=== PATIENT | female | born 1985 | race Caucasian/White ===

== ENCOUNTER → 2020-01-29 | Outpatient (CLI) | payer OTHER ==
[2020-01-29 10:52] LABS: ABSOLUTE BASOPHILS # (AUTO) 0.1 10^3/uL (0.0-0.2); ABSOLUTE EOSINOPHILS # (AUTO) 0.1 10^3/uL (0.0-0.6); ABSOLUTE LYMPHOCYTES (AUTO) 1.7 10^3/uL (0.5-4.7); ABSOLUTE MONOCYTES (AUTO) 0.8 10^3/uL (0.1-1.4); ABSOLUTE NEUT (AUTO) 5.6 10^3/uL (1.7-8.2); BASOPHILS % (AUTO) 0.8 % (0-2); EOSINOPHILS % (AUTO) 0.8 % (0-6); HEMATOCRIT 32.7 % (36.0-47.0); HEMOGLOBIN 11.1 g/dL (12.0-15.5); LYMPHOCYTES % (AUTO) 21.1 % (13-45); MEAN CORPUSCULAR HEMOGLOBIN 26.7 pg (27.0-33.4); MEAN CORPUSCULAR VOLUME 79 fl (80-97); MONOCYTES % (AUTO) 9.8 % (3-13); PLATELET COUNT 232 10^3/uL (150-450); RED BLOOD COUNT 4.16 10^6/uL (3.72-5.28); RED CELL DISTRIBUTION WIDTH 16.3 % (11.5-14.0); SEGMENTED NEUTROPHILS % (AUTO) 67.5 % (42-78); TOTAL CELLS COUNTED % (AUTO) 100 %; WHITE BLOOD COUNT 8.2 10^3/uL (4.0-10.5)
[2020-01-29 11:00] LABS: APPEARANCE,URINE CLEAR; BILIRUBIN,URINE NEGATIVE (NEGATIVE); COLOR,URINE STRAW; GLUCOSE, URINE NEGATIVE (NEGATIVE); KETONES,URINE NEGATIVE (NEGATIVE); LEUKOCYTE ESTERASE,URINE NEGATIVE (NEGATIVE); NITRITE,URINE NEGATIVE (NEGATIVE); PROTEIN,URINE NEGATIVE (NEGATIVE); URINE SPECIFIC GRAVITY 1.004; UROBILINOGEN,URINE NEGATIVE mg/dL (<2.0)
[2020-01-29 11:29] LABS: URINE AMPHETAMINES SCREEN NEGATIVE; URINE BARBITURATES SCREEN NEGATIVE; URINE BENZODIAZEPINES SCREEN NEGATIVE; URINE COCAINE SCREEN NEGATIVE; URINE MARIJUANA (THC) SCREEN NEGATIVE; URINE METHADONE SCREEN NEGATIVE; URINE PHENCYCLIDINE SCREEN NEGATIVE
[2020-01-29 13:01] VITALS: BP 133/64
== END ==
LOC: OD 10:25 → EDSTATUS 02-04 07:45
PROVIDERS: ATTEND Student in an Organized Health Care Education/Training Program
DX: Z01.812 Encounter for preprocedural laboratory examination (principal); O34.219 Maternal care for unspecified type scar from previous cesarean delivery
CPT/HCPCS: 36415; 80307; 81001; 85025

== ENCOUNTER 2020-02-02 05:06 | Inpatient (IN) | payer OTHER ==
[2020-02-02 05:44] LABS: ABSOLUTE BASOPHILS # (AUTO) 0.1 10^3/uL (0.0-0.2); ABSOLUTE EOSINOPHILS # (AUTO) 0.1 10^3/uL (0.0-0.6); ABSOLUTE LYMPHOCYTES (AUTO) 2.1 10^3/uL (0.5-4.7); ABSOLUTE MONOCYTES (AUTO) 1.1 10^3/uL (0.1-1.4); ABSOLUTE NEUT (AUTO) 7.4 10^3/uL (1.7-8.2); BASOPHILS % (AUTO) 1.2 % (0-2); EOSINOPHILS % (AUTO) 1.1 % (0-6); HEMATOCRIT 32.3 % (36.0-47.0); HEMOGLOBIN 11.2 g/dL (12.0-15.5); LYMPHOCYTES % (AUTO) 19.1 % (13-45); MEAN CORPUSCULAR HEMOGLOBIN 27.2 pg (27.0-33.4); MEAN CORPUSCULAR HGB CONC 34.8 g/dL (32.0-36.0); MEAN CORPUSCULAR VOLUME 78 fl (80-97); MONOCYTES % (AUTO) 10.5 % (3-13); PLATELET COUNT 266 10^3/uL (150-450); RED BLOOD COUNT 4.13 10^6/uL (3.72-5.28); RED CELL DISTRIBUTION WIDTH 16.3 % (11.5-14.0); SEGMENTED NEUTROPHILS % (AUTO) 68.1 % (42-78); TOTAL CELLS COUNTED % (AUTO) 100 %; WHITE BLOOD COUNT 10.8 10^3/uL (4.0-10.5)
[2020-02-02 05:46] LABS: APPEARANCE,URINE CLOUDY; BILIRUBIN,URINE NEGATIVE (NEGATIVE); COLOR,URINE YELLOW; GLUCOSE, URINE NEGATIVE (NEGATIVE); KETONES,URINE NEGATIVE (NEGATIVE); LEUKOCYTE ESTERASE,URINE NEGATIVE (NEGATIVE); NITRITE,URINE NEGATIVE (NEGATIVE); PROTEIN,URINE 30 mg/dL (NEGATIVE); URINE SPECIFIC GRAVITY 1.011; UROBILINOGEN,URINE NEGATIVE mg/dL (<2.0)
[2020-02-02] MEDS ORDERED: GLUCAGON,HUMAN RECOMB 1 MG INJ SUBCUT PRN (05:50)
[2020-02-02] MEDS ORDERED: DEXTROSE 40% GEL 15 GM TUBE PO PRN ×2 (05:50)
[2020-02-02] MEDS ORDERED: RINGERS SOLUTION,LACTATED 1,000 ML IV ONE (05:50)
[2020-02-02] MEDS ORDERED: RINGERS SOLUTION,LACTATED 1,000 ML IV PRN (05:50)
[2020-02-02] MEDS ORDERED: DEXTROSE 50%-WATER 25 GM/50 ML DISP.SYRIN IV PRN ×2 (05:50)
[2020-02-02 06:03] LABS: URINE AMPHETAMINES SCREEN NEGATIVE; URINE BARBITURATES SCREEN NEGATIVE; URINE BENZODIAZEPINES SCREEN NEGATIVE; URINE COCAINE SCREEN NEGATIVE; URINE MARIJUANA (THC) SCREEN NEGATIVE; URINE METHADONE SCREEN NEGATIVE; URINE PHENCYCLIDINE SCREEN NEGATIVE
[2020-02-02] MEDS ORDERED: CEFAZOLIN INJ 1 GM VIAL ONE (06:25)
[2020-02-02] MEDS ORDERED: CITRIC ACID/SODIUM CITRATE ORAL SOLN 15 ML UDCUP ONE (06:25)
[2020-02-02] MEDS ORDERED: CEFAZOLIN SODIUM 3 GM in DEXTROSE 5%-WATER 50 ML IV PRN (06:30)
[2020-02-02] MEDS ORDERED: FENTANYL CITRATE INJ/PF 100 MCG/2 ML AMPUL ONE (06:33)
[2020-02-02] MEDS ORDERED: EPHEDRINE SULFATE INJ 50 MG/1 ML AMPULE ONE (06:33)
[2020-02-02] MEDS ORDERED: KETOROLAC TROMETHAMINE INJ/PF 30 MG/1 ML SDV ONE (06:33)
[2020-02-02] MEDS ORDERED: OXYTOCIN 10 UNIT/ML VIAL ONE (06:33)
[2020-02-02] MEDS ORDERED: PHENYLEPHRINE HCL INJ/PF 10 MG/1 ML SDV ONE (06:33)
[2020-02-02] MEDS ORDERED: ACETAMINOPHEN 1,000 MG/100 ML RTUPB IV ONE (06:34)
[2020-02-02] MEDS ORDERED: ONDANSETRON HCL INJ/PF 4 MG/2 ML SDV ONE (06:34)
[2020-02-02] MEDS ORDERED: METHYLERGONOVINE MALEATE INJ/PF 0.2 MG/1 ML AMPULE ONE (06:34)
[2020-02-02] MEDS ORDERED: MIDAZOLAM 2 MG/2 ML INJ ONE (06:34)
[2020-02-02] MEDS ORDERED: ACETAMINOPHEN 1,000 MG/100 ML RTUPB IV PRN (08:47)
[2020-02-02] MEDS ORDERED: OXYCODONE-ACETAMINOPHEN 5-325 MG TABLET PO PRN (08:47)
[2020-02-02] MEDS ORDERED: MEASLES,MUMPS&RUBELLA VACC/PF 0.5 ML VIAL SUBCUT PRN (08:47)
[2020-02-02] MEDS ORDERED: OXYTOCIN/NORMAL SALINE 20 UNIT/1,000 ML RTUINJ IV PRN (08:47)
[2020-02-02] MEDS ORDERED: ACETAMINOPHEN 325 MG TABLET PO PRN (08:47)
[2020-02-02] MEDS ORDERED: DIPH/PERTUSS(ACELL)/TETANUS VAC/PF 0.5 ML SYR (>=10YO) IM PRN (08:47)
[2020-02-02] MEDS ORDERED: PROMETHAZINE HCL INJ 25 MG/1 ML VIAL IV PRN (08:47)
--- NOTE | 2020-02-02 08:54 | Brief Operative Note ---
BRIEF OPERATIVE REPORT DATE OF SURGERY: 02/02/20 TIME OF SURGERY: 07:00 PREOPERATIVE DIAGNOSIS: 37+0ega, TIUP, DC/DA, PROM, Active labor, Right thigh Abscess, Hypertrophic scar, Multiparity, undesired fertility POSTOPERATIVE DIAGNOSIS: TOMAS - delivered SURGEON: ALEXIS JONES FINDINGS: Baby A VFI delivered at 0718, Apgars 9/9, weight 3130g, Baby B is VFI delivered at 0719, Apgars 8/9, 3090g. Normal uterus with thin lower uterine segment, normal bilateral tubes, [place] BTL performed. IVF 1200ml, UOP 150ml COMPLICATIONS: None ESTIMATED BLOOD LOSS: 700ml TISSUE REMOVED OR ALTERED: placenta and cord x 2 TECHNICAL PROCEDURE: Repeat section with [place] B[facility], Scar revision, I&D of right thigh abscess
--- NOTE | 2020-02-02 09:25 | Warning Signs in Babies ---
VOD Warning Signs Datetime Report Generated by [facility]: 02/02/2020 09:25 VOD#[id number] -Warning Signs in Babies: Viewed with Parent(s)/Family (02/02/2020 04:31:Nohemy Saxena RN)
[2020-02-02] MEDS ORDERED: MISOPROSTOL 0.2 MG TABLET ONE (10:01)
[2020-02-02] MEDS ORDERED: MISOPROSTOL 0.1 MG TABLET PR ONE (10:03)
[2020-02-02] MEDS: DOCUSATE SODIUM 100 MG CAPSULE PO SCH ×2 (10:53→17:26)
[2020-02-02] MEDS: PRENATAL VITAMIN W DHA CAPSULE PO SCH (10:53)
[2020-02-02] MEDS: OXYCODONE-ACETAMINOPHEN 5-325 MG TABLET PO PRN ×2 (10:53→15:43)
[2020-02-02] MEDS: HYDROMORPHONE HCL INJ/PF 2 MG/ML AMPULE IV PRN ×2 (11:54→20:53)
--- NOTE | 2020-02-02 14:10 | Admission Physical ---
Datetime Report Generated by CPN: 02/02/2020 14:10 CURRENT ADMISSION Chief Complaint: Uterine Contractions; Suspected Ruptured Membranes Indication for Induction: Not Applicable Admit Impression : Term, Intrauterine ; Active Labor; Ruptured Membranes; Repeat Section; Tubal Ligation Admit Plan: Admit to Unit; Initiate Section Protocol ALLERGIES Medication Allergies: No Medication Allergies: No Known Allergies (02/02/2020) Latex: No Latex Allergies OBSTETRICAL HISTORY EDC: 02/23/2020 00:00 : 3 Para: 1 Gestational Diabetes: No Rh Sensitization: No Incompetent Cervix: No LUCÍA: No Infertility: No ART Treatment: No Uterine Anomaly: No IUGR: No Hx Previous C/S: Yes Macrosomia: No Hx Loss/Stillborn: No PIH: No Hx : No Placenta Previa/Abruption: No Depression/PP Depression: No PTL/PROM: No Post Hemorrhage: No Current Procedures: Ultrasound; NST Obstetrical History Comments: 05/24/16, C/S @38 weeks SAB less then 12 weeks G3-Current SEE RECORDS Alcohol: No Marijuana : No Cocaine: No Other Illicit Drugs: No Cigarettes: Former Smoker. 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: No Heart Disease: No Hosp/Surgery: Yes Autoimmune Disorder: No Anesthetic Complications: No Kidney Disease: No Abnormal Pap Smear: No Neuro/Epilepsy: No Psychiatric Disorders: No Other Medical Diseases: No Hepatitis/Liver Disease: No Significant Family History: No Varicosities/Phlebitis: No Trauma/Violence : No Thyroid Dysfunction: No Medical History Comments: Breast augmentation, pylenodial cyst x2, tonsillectomy, previous c/s INFECTIOUS HISTORY Gonorrhea: No Genital Herpes: Yes Chlamydia: No Tuberculosis: No Syphilis: No Hepatitis: No HIV/AIDS Exposure: No Rash or Viral Illness: No HPV: No Infectious History Comments: HSV 07/2014 PHYSICAL EXAM General: Normal HEENT: Normal Neurologic: Normal Thyroid: Deferred Heart: Normal Lungs: Normal Breast: Deferred Back: Normal Abdomen: Normal Genitourinary Exam: Normal Extremities: Normal DTRs: Normal Pelvic Type: Adequate Vital Signs: Reviewed VAGINAL EXAM Dilatation: 4 Effacement: 90 Station: 0 Contraction Comments: q 2 MEMBRANES Membranes: Ruptured Amniotic Fluid Color: Clear FETUS A EGA: 37.0 Monitoring: External US FHR- Baseline: 145 Variability: Moderate 6-25bpm Accelerations: 15X15 Decelerations: None FHR Category: Category I Presentation: Vertex Admit Comment: 34yo at 37+0ega presents for SROM at 0330, clear fluid. She presented to labor and delivery with increasing contractions and in active labor. DC/DA TIUP. GBS negative. Right thigh abscess and reviewed may need to I_D while she has a spinal. BMI 39, H/o HSV - prophy at 34wks. BMZ given on 01/28 and 01/29. Dr. Grant saw patient for anesthesia clearance. Admit to labor and delivery for Repeat c/s with BTL and right thigh abscess drainage. FETUS B Monitoring: External US Variability: Moderate 6-25bpm Accelerations: 15X15 Decelerations: None FHR Category: Category I Presentation: Vertex PLANS FOR LABOR AND DELIVERY Feeding Preference: Formula Benefit of Breast Feed Discussed: Yes INFORMED CONSENT Informed Consent Obtained: Section Delivery; Sterilization Signature: with User ID: [email or web address]
[2020-02-02] MEDS ORDERED: PIPERACILLIN/TAZOBACTAM 3.375 GM VIAL IV SCH (15:00)
[2020-02-02] MEDS: PIPERACILLIN SODIUM/TAZOBACTAM 3.375 GM in NORMAL SALINE 100 ML IV SCH ×2 (15:21→20:54)
[2020-02-02] MEDS: KETOROLAC TROMETHAMINE INJ/PF 30 MG/1 ML SDV IV SCH ×2 (15:23→22:29)
[2020-02-02] MEDS: SIMETHICONE 80 MG TAB.CHEW PO PRN (21:00)
[2020-02-03] MEDS: OXYCODONE-ACETAMINOPHEN 5-325 MG TABLET PO PRN ×4 (03:31→21:45)
[2020-02-03] MEDS: PIPERACILLIN SODIUM/TAZOBACTAM 3.375 GM in NORMAL SALINE 100 ML IV SCH ×4 (03:31→21:24)
[2020-02-03] MEDS: KETOROLAC TROMETHAMINE INJ/PF 30 MG/1 ML SDV IV SCH (05:48)
[2020-02-03 07:37] LABS: HEMATOCRIT 29.7 % (36.0-47.0); HEMOGLOBIN 10.1 g/dL (12.0-15.5); MEAN CORPUSCULAR HEMOGLOBIN 26.4 pg (27.0-33.4); MEAN CORPUSCULAR VOLUME 78 fl (80-97); PLATELET COUNT 246 10^3/uL (150-450); RED BLOOD COUNT 3.82 10^6/uL (3.72-5.28); RED CELL DISTRIBUTION WIDTH 16.5 % (11.5-14.0); WHITE BLOOD COUNT 13.2 10^3/uL (4.0-10.5)
[2020-02-03] MEDS: IBUPROFEN 800 MG TABLET PO SCH ×3 (09:04→21:24)
[2020-02-03] MEDS: SIMETHICONE 80 MG TAB.CHEW PO PRN (09:05)
[2020-02-03] MEDS: PRENATAL VITAMIN W DHA CAPSULE PO SCH (11:11)
[2020-02-03] MEDS: DOCUSATE SODIUM 100 MG CAPSULE PO SCH ×2 (11:11→17:28)
--- NOTE | 2020-02-03 15:53 | PDOC PROGRESS REPORT ---
Subjective-OB Progress Note for:: 02/03/20 Subjective: 34yo G3 now P2L3 s/p repeat with tubal ligation ppd 1. Pt ambulating and voiding without difficulty. Reports pain well controlled with medications. No concerns today. Desires early discharge if possible Physical Exam (OB) Vital Signs: Temp Pulse Resp BP Pulse Ox 98.1 F 87 18 105/61 97 02/03/20 15:18 02/03/20 15:18 02/03/20 15:18 02/03/20 15:18 02/03/20 15:18 Intake & Output 02/02/20 02/03/20 02/04/20 06:59 06:59 06:59 Intake Total 1200 100 Output Total 1750 Balance -550 100 Weight 269.4 kg - General General Appearance: Appears well In distress: None - PIH/Pre-Eclampsia DTR's: 2 + Clonus: Negative Headache: Absent Epigastric Pain: Yes Visual Changes: No - Dressing Removed: No Incision: Well Approximated Closure Type: Steri-Strips - Bilateral Tubal Ligation Dressing Removed: Yes - Lochia Lochia Amount: Small 10-25 ml Lochia Color: Rubra/Red - Abdomen Description: Tender, Soft, Round Hernia Present: No Fundal Description: Firm, Midline Fundal Height: u/u - u/2 - Respiratory Respiratory Status: No respiratory distress - Extremities Upper extremity: Normal inspection Lower extremities: Normal inspection - Neurological Cognition: Normal Orientation: AAOx4 - Psychological Associated symptoms: Normal affect, Normal mood Objective-Diagnostic Laboratory: 02/03/20 07:10 02/03/20 02/03/20 07:10 07:10 WBC 13.2 H RBC 3.82 Hgb 10.1 L Hct 29.7 L MCV 78 L MCH 26.4 L MCHC 34.0 RDW 16.5 H Plt Count 246 Blood Type O NEGATIVE Assessment and Plan(PN) - Assessment and Plan (1) Abscess of right thigh Is this a current diagnosis for this admission?: Yes Plan: drained during surgery, continue antibiotics per Dr. Wei (2) Encounter for sterilization Is this a current diagnosis for this admission?: Yes Plan: routine pp care (3) S/P repeat low transverse Is this a current diagnosis for this admission?: Yes Plan: Routine pp care (4) History of delivery Is this a current diagnosis for this admission?: Yes Plan: delivered (5) Twin gestation, dichorionic diamniotic Qualifiers: Trimester: third trimester Qualified Code(s): O30.043 - Twin , dic horionic/diamniotic, third trimester Is this a current diagnosis for this admission?: Yes Plan: delivered, in well baby nursery at this time - Time Spent with Patient Time with patient: Less than 15 minutes Medications reviewed and adjusted accordingly: Yes - Disposition Anticipated Discharge: Home Within: within 24 hours
--- NOTE | 2020-02-03 18:44 | PDOC PROGRESS REPORT ---
Subjective Progress Note for:: 02/03/20 Subjective:: Doing well . Tolerating PO, voiding, passing gas, pain well managed and bleeding like a period. Babies are doing well She feels the abscess on right is less painful. Dressing came off but metal products viewer not been draining any purulent drainage Denies fever, chills, redness Reason For Visit: Physical Exam - Physical Exam Vital Signs: Temp Pulse Resp BP Pulse Ox 98.1 F 87 18 105/61 97 02/03/20 15:18 02/03/20 15:18 02/03/20 15:18 02/03/20 15:18 02/03/20 15:18 Intake & Output 02/02/20 02/03/20 02/04/20 06:59 06:59 06:59 Intake Total 1200 500 Output Total 1750 Balance -550 500 Weight 269.4 kg General appearance: PRESENT: no acute distress GI/Abdominal exam: PRESENT: normal bowel sounds, soft Extremities exam: PRESENT: other - Incision on right medial thigh is 1 cm and when pressing on area around wound to assess for fluctuance: a small amount of serosanginous fluid noted No fluctuant area....... Area of cellulitis approximately 2-3 cm in circumferance noted. Not really red but has erythema Result Laboratory Results: 02/03/20 07:10 02/03/20 02/03/20 07:10 07:10 WBC 13.2 H RBC 3.82 Hgb 10.1 L Hct 29.7 L MCV 78 L MCH 26.4 L MCHC 34.0 RDW 16.5 H Plt Count 246 Blood Type O NEGATIVE Assessment & Plan - Diagnosis (1) Abscess of right thigh Is this a current diagnosis for this admission?: Yes (2) History of delivery Is this a current diagnosis for this admission?: Yes (3) S/P repeat low transverse Is this a current diagnosis for this admission?: Yes (4) Twin gestation, dichorionic diamniotic Qualifiers: Trimester: third trimester Qualified Code(s): O30.043 - Twin , dichorionic/diamniotic, third trimester Is this a current diagnosis for this admission?: Yes - Time Time Spent with patient: 15-24 minutes Within: within 24 hours - Plan Summary Plan Summary: Plan: continue antibiotics and dressing PRN Doing well -continue current care Likely d/c in am
[2020-02-04] MEDS: OXYCODONE-ACETAMINOPHEN 5-325 MG TABLET PO PRN ×2 (01:50→06:15)
[2020-02-04] MEDS: PIPERACILLIN SODIUM/TAZOBACTAM 3.375 GM in NORMAL SALINE 100 ML IV SCH ×2 (03:36→12:02)
[2020-02-04] MEDS: IBUPROFEN 800 MG TABLET PO SCH ×2 (03:38→09:51)
--- NOTE | 2020-02-04 09:22 | PDOC PROGRESS REPORT ---
Subjective-OB Progress Note for:: 02/04/20 Subjective: Ready for discharge. Physical Exam (OB) Vital Signs: Temp Pulse Resp BP Pulse Ox 97.8 F 66 16 125/63 98 02/04/20 07:34 02/04/20 07:34 02/04/20 07:34 02/04/20 07:34 02/04/20 07:34 Intake & Output 02/03/20 02/04/20 02/05/20 06:59 06:59 06:59 Intake Total 1200 940 Output Total 1750 2 Balance -550 938 - PIH/Pre-Eclampsia DTR's: 2 + Clonus: Negative Headache: Absent Epigastric Pain: Yes Visual Changes: No - Dressing Removed: No Incision: Dressing Closure Type: Steri-Strips - Bilateral Tubal Ligation Dressing Removed: Yes - Lochia Lochia Amount: Scant < 10 ml Lochia Color: Rubra/Red - Abdomen Description: Soft Hernia Present: No Bowel Sounds: Normoactive Flatus Presence: Present Stool: No Fundal Description: Firm, Midline Fundal Height: u/u - u/2 Objective-Diagnostic Laboratory: 02/03/20 07:10 02/03/20 07:10 Blood Type O NEGATIVE Assessment and Plan(PN) - Time Spent with Patient Medications reviewed and adjusted accordingly: Yes - Disposition Anticipated Discharge: Home
--- NOTE | 2020-02-04 09:41 | PDOC DISCHARGE SUMMARY ---
Impression - Admit/DC Date/PCP Admission Date/Primary Care Provider: 02/02/20 05:51 ALEXIS JONES MD Discharge Date: 02/04/20 - Discharge Diagnosis (1) Abscess of right thigh Is this a current diagnosis for this admission?: Yes (2) Encounter for sterilization Is this a current diagnosis for this admission?: Yes (3) History of delivery Is this a current diagnosis for this admission?: Yes (4) S/P repeat low transverse Is this a current diagnosis for this admission?: Yes (5) Twin gestation, dichorionic diamniotic Is this a current diagnosis for this admission?: Yes - Additional Information Resuscitation Status: Full Code Discharge Diet: Regular Discharge Activity: Activity As Tolerated, Balance Activity w/Rest, No Lifting Over 10 Pounds, No Lifting/Push/Pulling, Non-Ambulatory Child, Pelvic Rest, Slowly Increase Activity, No tub bath Referrals: ALEXIS JONES MD [Primary Care Provider] - Prescriptions: Oxycodone HCl/Acetaminophen [Percocet 5-325 mg Tablet] 1 tab PO Q4HP PRN #20 tablet PRN Reason: Docusate Sodium [Colace 100 mg Capsule] 100 mg PO BID #60 capsule Ferrous Sulfate [Feosol 325 mg Tablet] 325 mg PO DAILY #30 tab Ibuprofen [Motrin 800 mg Tablet] 800 mg PO Q6A #30 tablet Home Medications: Clindamycin HCl 300 mg PO TID 01/29/20 Prenat 115/Iron Fum/Folic/Dss [ 19 Tablet] 1 each PO DAILY 01/29/20 Sertraline HCl [Zoloft 50 mg Tablet] 100 mg PO DAILY 01/29/20 Docusate Sodium [Colace 100 mg Capsule] 100 mg PO BID #60 capsule 02/04/20 Ferrous Sulfate [Feosol 325 mg Tablet] 325 mg PO DAILY #30 tab 02/04/20 Ibuprofen [Motrin 800 mg Tablet] 800 mg PO Q6A #30 tablet 02/04/20 Oxycodone HCl/Acetaminophen [Percocet 5-325 mg Tablet] 1 tab PO Q4HP PRN #20 tablet 02/04/20 HPI Gestational Age: 37 wks Reason(s) for Admission: Ceasarean Section-Repeat Procedures: Ultrasound Intrapartum Procedure(s): : Low Cervical, Transverse Results Laboratory Results: WBC 13.2 10^3/uL (4.0-10.5) H 02/03/20 07:10 RBC 3.82 10^6/uL (3.72-5.28) 02/03/20 07:10 Hgb 10.1 g/dL (12.0-15.5) L 02/03/20 07:10 Hct 29.7 % (36.0-47.0) L 02/03/20 07:10 MCV 78 fl (80-97) L 02/03/20 07:10 MCH 26.4 pg (27.0-33.4) L 02/03/20 07:10 MCHC 34.0 g/dL (32.0-36.0) 02/03/20 07:10 RDW 16.5 % (11.5-14.0) H 02/03/20 07:10 Plt Count 246 10^3/uL (150-450) 02/03/20 07:10 Lymph % (Auto) 19.1 % (13-45) 02/02/20 05:25 [place] % (Auto) 10.5 % (3-13) 02/02/20 05:25 Eos % (Auto) 1.1 % (0-6) 02/02/20 05:25 Baso % (Auto) 1.2 % (0-2) 02/02/20 05:25 Absolute Neuts (auto) 7.4 10^3/uL (1.7-8.2) 02/02/20 05:25 Absolute Lymphs (auto) 2.1 10^3/uL (0.5-4.7) 02/02/20 05:25 Absolute Monos (auto) 1.1 10^3/uL (0.1-1.4) 02/02/20 05:25 Absolute Eos (auto) 0.1 10^3/uL (0.0-0.6) 02/02/20 05:25 Absolute Basos (auto) 0.1 10^3/uL (0.0-0.2) 02/02/20 05:25 Seg Neutrophils % 68.1 % (42-78) 02/02/20 05:25 Urine Color YELLOW 02/02/20 05:11 Urine Appearance CLOUDY 02/02/20 05:11 Urine pH 7.0 (5.0-9.0) 02/02/20 05:11 Ur Specific [place] 1.011 02/02/20 05:11 Urine Protein 30 mg/dL (NEGATIVE) H 02/02/20 05:11 Urine Glucose (UA) NEGATIVE mg/dL (NEGATIVE) 02/02/20 05:11 Urine Ketones NEGATIVE mg/dL (NEGATIVE) 02/02/20 05:11 Urine Blood MODERATE (NEGATIVE) H 02/02/20 05:11 Urine Nitrite NEGATIVE (NEGATIVE) 02/02/20 05:11 Urine Bilirubin NEGATIVE (NEGATIVE) 02/02/20 05:11 Urine Urobilinogen NEGATIVE mg/dL (<2.0) 02/02/20 05:11 Ur Leukocyte Esterase NEGATIVE (NEGATIVE) 02/02/20 05:11 Urine Ascorbic Acid NEGATIVE (NEGATIVE) 02/02/20 05:11 Membranes Rupture POSITIVE (NEGATIVE) H 02/02/20 05:11 Urine Opiates Screen UNCONFIRMED POSITIVE 02/02/20 05:11 Urine Methadone Screen NEGATIVE 02/02/20 05:11 Ur Barbiturates Screen NEGATIVE 02/02/20 05:11 Ur Phencyclidine Scrn NEGATIVE 02/02/20 05:11 Ur Amphetamines Screen NEGATIVE 02/02/20 05:11 U Benzodiazepines Scrn NEGATIVE 02/02/20 05:11 Urine Cocaine Screen NEGATIVE 02/02/20 05:11 U Marijuana (THC) Screen NEGATIVE 02/02/20 05:11 RPR NONREACTIVE (NONREACTIVE) 02/02/20 05:25 Blood Type O NEGATIVE 02/03/20 07:10 Antibody Screen POSITIVE 02/02/20 05:25 Antibody Identification RHOGAM INDUCED ANTI-D 02/02/20 05:25 Screen NEGATIVE 02/03/20 07:10 Plan Time Spent: Less than 30 Minutes
[2020-02-04] MEDS: DOCUSATE SODIUM 100 MG CAPSULE PO SCH (09:51)
[2020-02-04] MEDS: PRENATAL VITAMIN W DHA CAPSULE PO SCH (09:51)
[2020-02-04 11:42] VITALS: BP 132/73
--- NOTE | 2020-02-05 06:46 | Operative Report ---
Operative Report DATE OF SURGERY: 02/02/20 PREOPERATIVE DIAGNOSIS: 37+0ega, TIUP, DC/DA, PROM, Active labor, Right thigh A bscess, Hypertrophic scar, Multiparity, undesired fertility POSTOPERATIVE DIAGNOSIS: TOMAS - delivered OPERATION: Repeat Section, [place] BTL, Scar revision SURGEON: ALEXIS JONES ANESTHESIA: Spinal TISSUE REMOVED OR ALTERED: placenta and cord x 2 COMPLICATIONS: None ESTIMATED BLOOD LOSS: 700 QUANTITATIVE BLOOD LOSS: 1,040 INTRAOPERATIVE FINDINGS: Baby A VFI delivered at 0718, Apgars 9/9, weight 3130g, Baby B is VFI delivered at 0719, Apgars 8/9, 3090g. Normal uterus with thin lower uterine segment, normal bilateral tubes, [place] BTL performed. IVF 1200ml, UOP 150ml PROCEDURE: Anesthesia provider: [John Zhu CRNA, MD] Urine output: [150ml] IV fluids: [1200ml] Indications: [] Procedure: The patient was taken to the operating room where spinal anesthesia was obtained and found to be adequate. She was then prepped and draped in the normal sterile fashion and placed in the dorsal supine position with a leftward tilt. The hypertrophic pfannensteil skin incision was removed and then Pfannenstiel skin incision was then made and carried through to the underlying layers of the fascia with the scalpel. The fascia was incised in the midline and the incision extended laterally with the Hoang scissors. The superior aspect of the fascial incision was then grasped with jerrell clamps elevated and the underlying rectus muscles dissected off [bluntly]. Attention was then turned to the inferior aspect of the fascial incision which in a similar fashion was grasped, tented up with Jerrell clamps, and the rectus muscles dissected off [bluntly]. The rectus muscles were then in the midline and the peritoneum at the amount identified and entered [bluntly]. The peritoneal incision was then extended superiorly and inferiorly with good visualization of the bladder. The bladder blade was inserted and the vesicouterine peritoneum identified grasped with Nepalese pickups and entered sharply with the Metzenbaum scissors. This incision was then extended laterally with the Metzenbaum scissors and a bladder flap created digitally. The bladder blade was then reinserted and the lower uterine segment incised in a transverse fashion with the scalpel. The uterine incision was then extended bluntly. The bladder blade was removed and the baby A was delivered from cephalic presentation atraumatically. The nose and mouth were suctioned and the cord doubly clamped and cut. And the infant was handed off to waiting pediatricians. Baby B membranes were ruptured then baby B was delivered from cephalic presentation. The nose and mouth were suctioned and the cord doubly clamped and cut. And the infant was handed off to waiting pediatricians. The placentas was then delivered spontaneously and the uterus exteriorized and cleared of all clots and debris. The uterine incision was then repaired with 1- 0 Vicryl in a running locked fashion. A second layer of the same suture was used to obtain hemostasis via imbrication of the initial layer. The bladder flap was then repaired with 3-0 chromic in a running fashion. The right falloian tube was identified and [place] tubal ligation performed with intervening portion of fallopian tube removed. This procedure was repeated on the left thus completing the tubal ligation bilaterally. The uterus was returned to the patient's abdomen and Interceed was placed overlying the uterine incision to prevent adhesions. The gutters were cleared of all clots and debris. All operative sites were noted to be hemostatic. Surgicel was placed for additional hemostasis. The fascia was reapproximated with 0 Vicryl in a running fashion from each lateral edge to the midline. The skin was closed with 3-0 Monocryl in a running subcuticular fashion with overlying Dermabond for additional dressing as well as wound closure. The patient tolerated the procedure well. Sponge lap needle and instrument counts are correct times 2. 3 g of Ancef were given prior to skin incision. The patient was taken to the recovery area awake and in stable condition.
--- NOTE | 2020-02-05 14:54 | Delivery Summary ---
Del Sum A-C Datetime Report Generated by CPN: 02/05/2020 14:54 DELIVERY PERSONNEL DELIVERY PERSONNEL: [id number] Delivery Doctor:: Margarita Wei MD Anesthesiologist:: MD John WARP HAND:: Elvis Normile, WARP HAND Regulatory Affairs Assistant:: Aruna Toledo RN Neonatal Nurse Practitioner:: Scooter ErastoASHLEY lindsay Public Health Inspector/QUALITY ASSURANCE TESTER: AlessandraST Rich Public Health Inspector/QUALITY ASSURANCE TESTER: Joellen Echols, ST MATERNAL INFORMATION Delivery Anesthesia: Spinal Medications After Delivery: Pitocin Drip 20 Units/1000ml NSS Estimated Blood Loss (ml): 700 Maternal Complications: None LABOR SUMMARY EDC: 02/23/2020 00:00 No. Babies in Womb: 2 LABOR INFORMATION Group B Beta Strep: Negative Steroids Given: Full Course MEMBRANES Membranes Rupture Method: Spontaneous Rupture of Membranes: 02/02/2020 03:40 Length of Rupture (hr): 3.63 STAGES OF LABOR Stage 3 hr: 0 Stage 3 min: 2 CSECTION DELIVERY Primary Indication: Repeat Elective Other Primary Indication: Twins CSection Urgency: Non-Scheduled CSection Incidence: Repeat CSection Incision: Lower Uterine Transverse BABY A INFORMATION Delivery Date/Time: 02/02/2020 07:18 Method of Delivery: Nurse Controlled Delivery: No Born in Route : No : N/A Forceps: Outlet Vacuum Extraction: N/A Shoulder Dystocia : No PRESENTATION/POSITION BABY A Presentation: Cephalic Cephalic Presentation: Vertex PLACENTA INFORMATION BABY A Placenta Delivery Time : 02/02/2020 07:20 Placenta Method of Delivery: Manual Removal Placenta Status: Delivered SCORES BABY A Heart Rate 1 min: >100 bpm Resp Effort 1 min: Good Cry Reflex Irritability 1 min: Cough or Sneeze or Pulls Away Muscle Tone 1 min: Active Motion Color 1 min: Body [place], Extremities Blue Resuscitation Effort 1 min: Tactile Stimulation SCORE 1 MIN: 9 Heart Rate 5 min: >100 bpm Resp Effort 5 min: Good Cry Reflex Irritability 5 min: Cough or Sneeze or Pulls Away Muscle Tone 5 min: Active Motion Color 5 min: Body [place], Extremities Blue Resuscitation Effort 5 min: Tactile Stimulation SCORE 5 MIN: 9 INFANT INFORMATION BABY A Gestational Age at Delivery: 37+0 Outcome : Liveborn Condition : Stable Infant Sex: Female IDENTIFICATION BABY A Infant Verification Date/Time: 02/02/2020 07:28 ID Band Number: [id number] Mother's Name Verified: Yes RN Verifying : R Elizabeth RN Additional Verifying Personnel: Archana Orourke RN WEIGHT/LENGTH BABY A Birthweight (gm): 3130 Infant Weight (lb): 6 Infant Weight (oz): 14 Length (in): 18.50 Infant Length (cm): 46.99 CORD INFORMATION BABY A No. Cord Vessels: 3 Nuchal Cord : N/A Cord Blood Taken: Yes-For Eval (Mom's Blood Type - or O+) ASSESSMENT BABY A Infant Complications: None Skin to Skin: Yes Transferred To: Nursery BABY B INFORMATION Infant Delivery Date/Time: 02/02/2020 07:19 Method of Delivery : Nurse Controlled Delivery: No Born in Route : No : N/A Forceps : N/A Vacuum Extraction: N/A Shoulder Dystocia : No SHOULDER DYSTOCIA BABY B Infant Delivery Date/Time: 02/02/2020 07:19 PRESENTATION/POSITION BABY B Presentation : Cephalic Cephalic Position : Vertex ROM/PLACENTA INFO BABY B Rupture of Membranes: 02/02/2020 07:19 Length of Rupture (hr): 0.00 Placenta Delivery Time : 02/02/2020 07:20 Placenta Method of Delivery: Manual Removal Placental Status : Delivered SCORES BABY B Heart Rate 1 min: >100 bpm Resp Effort 1 min: Good Cry Reflex Irritability 1 min: Cough or Sneeze or Pulls Away Muscle Tone 1 min: Active Motion Color 1 min: Blue/Pale Resuscitation Effort 1 min: Tactile Stimulation SCORE 1 MIN: 8 Heart Rate 5 min: >100 bpm Resp Effort 5 min: Good Cry Reflex Irritability 5 min: Cough or Sneeze or Pulls Away Muscle Tone 5 min: Active Motion Color 5 min: Body [place], Extremities Blue SCORE 5 MIN: 9 INFANT INFORMATION BABY B Gestational Age at Delivery: 37+0 Outcome : Liveborn Infant Condition : Stable Sex : Female IDENTIFICATION BABY B Infant Verification Date/Time: 02/02/2020 07:30 ID Band Number : [id number] Mother's Name Verified: Yes RN Verifying : R Elizabeth RN Additional Verifying Personnel: Archana Orourke RN WEIGHT/LENGTH BABY B Birthweight (gm): 3090 Weight (lb) : 6 Weight (oz): 13 Length (in): 19.00 Infant Length (cm): 48.26 CORD INFORMATION BABY B No. Cord Vessels : 3 Nuchal Cord : N/A Cord Blood Taken : Yes-For Eval (Mom's Blood Type -) ASSESSMENT BABY B Infant Complications : None
== END 2020-02-04 11:55 | disposition home or self-care (01) | DRG 784 ==
LOC: LC 05:06 → LR 05:51 → 2S 10:05
PROVIDERS: ADMIT Student in an Organized Health Care Education/Training Program; ATTEND Student in an Organized Health Care Education/Training Program
PROC: 10D00Z1 Extraction of Products of Conception, Low, Open Approach (ICD-10-PCS; principal; 2020-02-02)
PROC: 0UB70ZZ Excision of Bilateral Fallopian Tubes, Open Approach (ICD-10-PCS; 2020-02-02)
PROC: 0H9HXZZ Drainage of Right Upper Leg Skin, External Approach (ICD-10-PCS; 2020-02-02)
PROC: 3E0234Z Introduction of Serum, Toxoid and Vaccine into Muscle, Percutaneous Approach (ICD-10-PCS; 2020-02-03)
DX: O30.043 Twin pregnancy, dichorionic/diamniotic, third trimester (principal); L02.415 Cutaneous abscess of right lower limb; O98.52 Other viral diseases complicating childbirth; Z37.2 Twins, both liveborn; O99.72 Diseases of the skin and subcutaneous tissue complicating childbirth; O34.211 Maternal care for low transverse scar from previous cesarean delivery; O26.893 Other specified pregnancy related conditions, third trimester; Z30.2 Encounter for sterilization; Z3A.37 37 weeks gestation of pregnancy; Z67.41 Type O blood, Rh negative; Z87.891 Personal history of nicotine dependence; B00.9 Herpesviral infection, unspecified; Z79.899 Other long term (current) drug therapy
CPT/HCPCS: 1961; 36415; 80307; 81005; 84112; 85025; 85027; 85461; 86592; 86850; 86870; 86900; 86901; 88302; 88307; 94760; 94799; J0131; J0690; J1170; J1885; J2210; J2250; J2370; J2405; J2543; J2590; J2790; J3010; J3490; J7050